=== PATIENT | male | born 1940 | race Caucasian/White ===

== ENCOUNTER → 2019-01-12 | Outpatient (CLI) | payer MEDICARE, BC | LOC: RAD 14:50 | DX: I08.3 Combined rheumatic disorders of mitral, aortic and tricuspid valves (principal); I77.810 Thoracic aortic ectasia; R94.31 Abnormal electrocardiogram [ECG] [EKG] ==

== ENCOUNTER → 2022-08-04 | Outpatient (CLI) | payer MEDICARE | LOC: RAD 14:38 | DX: M11.262 Other chondrocalcinosis, left knee (principal); M11.261 Other chondrocalcinosis, right knee; M16.0 Bilateral primary osteoarthritis of hip; M47.816 Spondylosis without myelopathy or radiculopathy, lumbar region ==

== ENCOUNTER → 2022-09-19 | Outpatient (CLI) | payer MEDICARE | LOC: RAD 11:26 | DX: M25.461 Effusion, right knee (principal); M25.561 Pain in right knee ==

== ENCOUNTER → 2023-09-16 | Outpatient (CLI) | payer MEDICARE | LOC: RAD 11:26 | DX: M54.6 Pain in thoracic spine (principal); S22.070S Wedge compression fracture of T9-T10 vertebra, sequela; X58.XXXS Exposure to other specified factors, sequela ==

== ENCOUNTER → 2023-12-11 | Outpatient (CLI) | payer MEDICARE | LOC: RAD 08:56 | DX: M85.851 Other specified disorders of bone density and structure, right thigh (principal); M85.852 Other specified disorders of bone density and structure, left thigh; Z87.81 Personal history of (healed) traumatic fracture ==